=== PATIENT | female | born 1945 | race Caucasian/White ===

== ENCOUNTER 2017-11-05 15:17 | Inpatient (IN) | payer OTHER ==
[2017-11-05] MEDS ORDERED: oxyCODONE IR 5 MG TAB PO PRN (15:56)
[2017-11-05] MEDS ORDERED: SENNOSIDES 1 TAB PO PRN (16:01)
[2017-11-05] MEDS ORDERED: POLYETHYLENE GLYCOL 3350 17 GM PKT PO PRN (16:03)
[2017-11-05] MEDS ORDERED: BISACODYL 10 MG SUPP PR PRN (16:04)
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
[2017-11-05] MEDS ORDERED: METHOCARBAMOL 500 MG TAB PO SCH (18:00)
[2017-11-05] MEDS: oxyCODONE IR 5 MG TAB PO PRN (20:47)
[2017-11-05] MEDS: GABAPENTIN 300 MG CAP PO SCH (20:48)
[2017-11-05] MEDS: ACETAMINOPHEN 500 MG TAB PO SCH (20:48)
[2017-11-06] MEDS: oxyCODONE IR 5 MG TAB PO PRN ×4 (03:18→20:22)
[2017-11-06] MEDS: LEVOTHYROXINE 137 MCG TAB PO SCH (06:16)
[2017-11-06] MEDS: ACETAMINOPHEN 500 MG TAB PO SCH ×3 (06:16→21:02)
[2017-11-06 07:57] LABS: PLATELET COUNT 518 10^3/uL (150-400)
[2017-11-06] MEDS ORDERED: EPA PO SCH (09:00)
[2017-11-06] MEDS ORDERED: FISH OIL PO SCH (09:00)
[2017-11-06] MEDS ORDERED: DHA PO SCH (09:00)
[2017-11-06] MEDS ORDERED: NON-FORMULARY NEW DRUG (Escitalopram Oxalate [Lexapro] 5 MG) PO SCH (09:00)
[2017-11-06] MEDS ORDERED: OMEGA PO SCH (09:00)
[2017-11-06] MEDS: ESCITALOPRAM OXALATE 10 MG TAB PO SCH (09:06)
[2017-11-06] MEDS: OMEGA-3 FATTY ACIDS 1,000 MG CAP PO SCH (09:12)
[2017-11-06] MEDS: MULTIVITAMINS 1 EACH TAB PO SCH (09:12)
[2017-11-06] MEDS: ASPIRIN EC 81 MG TAB PO SCH (09:18)
[2017-11-06] MEDS: ENOXAPARIN 40 MG/0.4 ML SYR SC SCH (11:29)
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
--- NOTE | 2017-11-06 16:28 | PDOREHIP ---
Admission [facility] - Admission - 3 Day Assessment Period Admission Date/Day 1: 11/05/17 Day 2: 11/06/17 Day 3: 11/07/17 - Active Diagnoses Comorbidities and Co-existing Conditions at Admission: 82173. None of the Above - Skin Conditions Unhealed Pressure Ulcer (1 or more/Stage 1 or >)-Admission: 0. No
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
[2017-11-06] MEDS: GABAPENTIN 300 MG CAP PO SCH (21:01)
[2017-11-07] MEDS: ACETAMINOPHEN 500 MG TAB PO SCH ×3 (06:11→20:59)
[2017-11-07] MEDS: LEVOTHYROXINE 137 MCG TAB PO SCH (06:12)
[2017-11-07] MEDS: MULTIVITAMINS 1 EACH TAB PO SCH (08:41)
[2017-11-07] MEDS: OMEGA-3 FATTY ACIDS 1,000 MG CAP PO SCH (08:41)
[2017-11-07] MEDS: ASPIRIN EC 81 MG TAB PO SCH (08:42)
[2017-11-07] MEDS: ESCITALOPRAM OXALATE 10 MG TAB PO SCH (08:43)
[2017-11-07] MEDS: ENOXAPARIN 40 MG/0.4 ML SYR SC SCH (08:44)
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
[2017-11-07] MEDS ORDERED: GABAPENTIN 300 MG CAP PO SCH (12:41)
[2017-11-07] MEDS: METHOCARBAMOL 500 MG TAB PO PRN (20:59)
[2017-11-07] MEDS: oxyCODONE IR 5 MG TAB PO PRN (22:18)
[2017-11-08] MEDS: LEVOTHYROXINE 137 MCG TAB PO SCH (06:12)
[2017-11-08] MEDS: ACETAMINOPHEN 500 MG TAB PO SCH ×3 (06:12→21:56)
[2017-11-08] MEDS: ESCITALOPRAM OXALATE 10 MG TAB PO SCH (08:21)
[2017-11-08] MEDS: MULTIVITAMINS 1 EACH TAB PO SCH (08:22)
[2017-11-08] MEDS: OMEGA-3 FATTY ACIDS 1,000 MG CAP PO SCH (08:22)
[2017-11-08] MEDS: APIXABAN 2.5 MG TAB PO SCH ×2 (08:22→20:29)
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
[2017-11-08] MEDS: METHOCARBAMOL 500 MG TAB PO PRN (15:28)
[2017-11-08] MEDS: oxyCODONE IR 5 MG TAB PO PRN ×2 (16:22→20:29)
[2017-11-09] MEDS: ACETAMINOPHEN 500 MG TAB PO SCH ×3 (06:26→20:37)
[2017-11-09] MEDS: LEVOTHYROXINE 137 MCG TAB PO SCH (06:27)
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
[2017-11-09] MEDS: OMEGA-3 FATTY ACIDS 1,000 MG CAP PO SCH (09:29)
[2017-11-09] MEDS: APIXABAN 2.5 MG TAB PO SCH ×2 (09:29→20:38)
[2017-11-09] MEDS: MULTIVITAMINS 1 EACH TAB PO SCH (09:29)
[2017-11-09] MEDS: ESCITALOPRAM OXALATE 10 MG TAB PO SCH (09:30)
[2017-11-09] MEDS: GABAPENTIN 300 MG CAP PO PRN (20:38)
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
[2017-11-10] MEDS: LEVOTHYROXINE 137 MCG TAB PO SCH (05:53)
[2017-11-10] MEDS: ACETAMINOPHEN 500 MG TAB PO SCH ×3 (05:53→20:44)
[2017-11-10] MEDS: APIXABAN 2.5 MG TAB PO SCH ×2 (09:02→20:44)
[2017-11-10] MEDS: ESCITALOPRAM OXALATE 10 MG TAB PO SCH (09:02)
[2017-11-10] MEDS: OMEGA-3 FATTY ACIDS 1,000 MG CAP PO SCH (09:03)
[2017-11-10] MEDS: MULTIVITAMINS 1 EACH TAB PO SCH (09:03)
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
[2017-11-10] MEDS: oxyCODONE IR 5 MG TAB PO PRN (20:43)
[2017-11-10] MEDS: METHOCARBAMOL 500 MG TAB PO PRN (20:44)
[2017-11-10] MEDS: GABAPENTIN 300 MG CAP PO PRN (20:44)
[2017-11-11] MEDS: ACETAMINOPHEN 500 MG TAB PO SCH ×3 (05:20→21:04)
[2017-11-11] MEDS: LEVOTHYROXINE 137 MCG TAB PO SCH (05:21)
[2017-11-11] MEDS: oxyCODONE IR 5 MG TAB PO PRN ×2 (07:44→21:05)
[2017-11-11] MEDS: ESCITALOPRAM OXALATE 10 MG TAB PO SCH (08:32)
[2017-11-11] MEDS: MULTIVITAMINS 1 EACH TAB PO SCH (08:34)
[2017-11-11] MEDS: OMEGA-3 FATTY ACIDS 1,000 MG CAP PO SCH (08:34)
[2017-11-11] MEDS: APIXABAN 2.5 MG TAB PO SCH ×2 (08:34→21:04)
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
[2017-11-11] MEDS: METHOCARBAMOL 500 MG TAB PO PRN (21:04)
[2017-11-11] MEDS: GABAPENTIN 300 MG CAP PO PRN (21:05)
[2017-11-12] MEDS: ACETAMINOPHEN 500 MG TAB PO SCH ×3 (06:21→21:07)
[2017-11-12] MEDS: LEVOTHYROXINE 137 MCG TAB PO SCH ×2 (06:21→06:22)
[2017-11-12] MEDS: ESCITALOPRAM OXALATE 10 MG TAB PO SCH (08:15)
[2017-11-12] MEDS: APIXABAN 2.5 MG TAB PO SCH ×2 (08:15→21:07)
[2017-11-12] MEDS: OMEGA-3 FATTY ACIDS 1,000 MG CAP PO SCH (08:16)
[2017-11-12] MEDS: MULTIVITAMINS 1 EACH TAB PO SCH (08:16)
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
[2017-11-12] MEDS: METHOCARBAMOL 500 MG TAB PO PRN (21:07)
[2017-11-13] MEDS: ACETAMINOPHEN 500 MG TAB PO SCH ×3 (05:38→21:11)
[2017-11-13] MEDS: LEVOTHYROXINE 137 MCG TAB PO SCH (05:39)
[2017-11-13] MEDS: APIXABAN 2.5 MG TAB PO SCH ×2 (08:21→21:10)
[2017-11-13] MEDS: ESCITALOPRAM OXALATE 10 MG TAB PO SCH (08:21)
[2017-11-13] MEDS: OMEGA-3 FATTY ACIDS 1,000 MG CAP PO SCH (08:22)
[2017-11-13] MEDS: MULTIVITAMINS 1 EACH TAB PO SCH (08:23)
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
[2017-11-13] MEDS: METHOCARBAMOL 500 MG TAB PO PRN (21:10)
[2017-11-14] MEDS: ACETAMINOPHEN 500 MG TAB PO SCH (06:04)
[2017-11-14] MEDS: LEVOTHYROXINE 137 MCG TAB PO SCH (06:05)
[2017-11-14] MEDS: ESCITALOPRAM OXALATE 10 MG TAB PO SCH (08:13)
[2017-11-14] MEDS: OMEGA-3 FATTY ACIDS 1,000 MG CAP PO SCH (08:14)
[2017-11-14] MEDS: APIXABAN 2.5 MG TAB PO SCH ×2 (08:14→20:25)
[2017-11-14] MEDS: MULTIVITAMINS 1 EACH TAB PO SCH (08:14)
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
[2017-11-14] MEDS: ACETAMINOPHEN 500 MG TAB PO PRN (20:27)
[2017-11-14] MEDS: METHOCARBAMOL 500 MG TAB PO PRN (20:30)
[2017-11-15] MEDS: LEVOTHYROXINE 137 MCG TAB PO SCH (06:12)
[2017-11-15] MEDS: OMEGA-3 FATTY ACIDS 1,000 MG CAP PO SCH (09:03)
[2017-11-15] MEDS: MULTIVITAMINS 1 EACH TAB PO SCH (09:03)
[2017-11-15] MEDS: ESCITALOPRAM OXALATE 10 MG TAB PO SCH (09:03)
[2017-11-15] MEDS: APIXABAN 2.5 MG TAB PO SCH ×2 (09:03→20:27)
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
[2017-11-15] MEDS: METHOCARBAMOL 500 MG TAB PO PRN (20:27)
[2017-11-15] MEDS: ACETAMINOPHEN 500 MG TAB PO PRN (20:27)
[2017-11-16] MEDS: LEVOTHYROXINE 137 MCG TAB PO SCH (05:29)
[2017-11-16] MEDS: APIXABAN 2.5 MG TAB PO SCH ×2 (07:45→20:51)
[2017-11-16] MEDS: ESCITALOPRAM OXALATE 10 MG TAB PO SCH (07:45)
[2017-11-16] MEDS: MULTIVITAMINS 1 EACH TAB PO SCH (07:46)
[2017-11-16] MEDS: OMEGA-3 FATTY ACIDS 1,000 MG CAP PO SCH (07:46)
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
--- NOTE | 2017-11-16 17:58 | WOCRNPDOC ---
WOCRN Advanced Assessment Note - Skin Integrity Problem, Advanced Assess Right Arm Dressing Type: LeukoMed with Pads Dressing Description: Clean/Dry, Intact Closure Description: Marielle, Approximated Exudate Amount: None Skin Integrity Problem Comment: No concerns. No drainage. Wound healing well. Right Leg Dressing Type: Rafita Bandage, Adaptic Touch, Kerlix, Mepilex Transfer Dressing Description: Intact, Shadowed Closure Description: Sutures, Approximated Exudate Amount: Scant Exudate Characteristic(s): Serosanguinous Integumentary Issue Intervention: Dressing Changed Saniya Wound Tissue: Erythema Saniya Wound Swelling: Moderate Wound Bed Constitution: Granulation Tissue, Red/[place] - Non Granular Tissue, Stable Eschar Wound Edges: Epithelizing, Attached Site Measurement - Head-to-Toe Length X Width X Depth (cm): Lateral incision: 19.8x3x 0, Medial 14x2x0, open wound on anterior lower le.3x9.2x0.1 Skin Integrity Problem Comment: Removed brace and previous dressing. Patient is numb over entire wound bed. Cleaned wound bed on anterior proximal lower leg with saline. Wound bed was covered with a mixture of thin loose slough and skin. The layer of loose slough and skin was mechanically debrided off wound bed with gauze and forceps. This area is in between the incision/suture lines and no debridement was done near the suture lines themselves. The wound was again cleaned with ns and then silvasorb was applied to the pink wound bed and mepilex non border foam placed on top. The incision lines bordering the wound are necrosed and have areas of eschar, the lateral section more so than the medial. The remainder of the incisions are approximated and are not necrosed. The incisions were covered with one layer of xeroform. Kerlix was applied over the entire area and then wrapped with Rafita and the brace reapplied.
[2017-11-16] MEDS: METHOCARBAMOL 500 MG TAB PO PRN (20:51)
[2017-11-16] MEDS: ACETAMINOPHEN 500 MG TAB PO PRN (20:51)
[2017-11-17] MEDS: LEVOTHYROXINE 137 MCG TAB PO SCH (05:42)
[2017-11-17] MEDS: ESCITALOPRAM OXALATE 10 MG TAB PO SCH (09:08)
[2017-11-17] MEDS: APIXABAN 2.5 MG TAB PO SCH ×2 (09:08→20:46)
[2017-11-17] MEDS: MULTIVITAMINS 1 EACH TAB PO SCH (09:09)
[2017-11-17] MEDS: OMEGA-3 FATTY ACIDS 1,000 MG CAP PO SCH (09:09)
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
[2017-11-17] MEDS: ACETAMINOPHEN 500 MG TAB PO PRN (20:44)
[2017-11-18] MEDS: LEVOTHYROXINE 137 MCG TAB PO SCH (05:09)
[2017-11-18] MEDS: OMEGA-3 FATTY ACIDS 1,000 MG CAP PO SCH (08:56)
[2017-11-18] MEDS: APIXABAN 2.5 MG TAB PO SCH ×2 (08:56→20:27)
[2017-11-18] MEDS: ESCITALOPRAM OXALATE 10 MG TAB PO SCH (08:56)
[2017-11-18] MEDS: MULTIVITAMINS 1 EACH TAB PO SCH (08:56)
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
[2017-11-18] MEDS: ACETAMINOPHEN 500 MG TAB PO PRN (20:27)
[2017-11-19] MEDS: LEVOTHYROXINE 137 MCG TAB PO SCH (05:36)
[2017-11-19] MEDS: ESCITALOPRAM OXALATE 10 MG TAB PO SCH (09:05)
[2017-11-19] MEDS: APIXABAN 2.5 MG TAB PO SCH ×2 (09:06→20:31)
[2017-11-19] MEDS: MULTIVITAMINS 1 EACH TAB PO SCH (09:06)
[2017-11-19] MEDS: OMEGA-3 FATTY ACIDS 1,000 MG CAP PO SCH (09:06)
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
[2017-11-19] MEDS: ACETAMINOPHEN 500 MG TAB PO PRN (20:31)
[2017-11-20] MEDS: LEVOTHYROXINE 137 MCG TAB PO SCH (05:42)
[2017-11-20 05:43] VITALS: BP 106/59
[2017-11-20] MEDS: ESCITALOPRAM OXALATE 10 MG TAB PO SCH (08:21)
[2017-11-20] MEDS: APIXABAN 2.5 MG TAB PO SCH (08:21)
[2017-11-20] MEDS: OMEGA-3 FATTY ACIDS 1,000 MG CAP PO SCH (08:21)
[2017-11-20] MEDS: MULTIVITAMINS 1 EACH TAB PO SCH (08:21)
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
--- NOTE | 2017-11-20 11:31 | PDOREHIP ---
Admission [facility] - Admission - 3 Day Assessment Period Admission Date/Day 1: 11/05/17 Day 2: 11/06/17 Day 3: 11/07/17 Discharge [facility] - Discharge - 3 Day Assessment Period 2 Days Prior to Anticipated Discharge Date: 11/18/17 1 Day Prior to Anticipated Discharge Date: 11/19/17 Anticipated Discharge Date: 11/20/17 - Discharge Skin Conditions Unhealed Pressure Ulcer (1 or more/Stage 1 or >)-Discharge: 0. No
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
== END 2017-11-20 16:26 | disposition home or self-care (01) | DRG 946 ==
LOC: BREH 15:17
PROVIDERS: ADMIT Internal Medicine; ATTEND Physical Medicine & Rehabilitation
DX: S06.9X1D Unspecified intracranial injury with loss of consciousness of 30 minutes or less, subsequent encounter (principal); S22.41XD Multiple fractures of ribs, right side, subsequent encounter for fracture with routine healing; S42.351D Displaced comminuted fracture of shaft of humerus, right arm, subsequent encounter for fracture with routine healing; S82.141D Displaced bicondylar fracture of right tibia, subsequent encounter for closed fracture with routine healing; S82.401D Unspecified fracture of shaft of right fibula, subsequent encounter for closed fracture with routine healing; S27.321D Contusion of lung, unilateral, subsequent encounter; S27.0XXD Traumatic pneumothorax, subsequent encounter; V13.4XXD Pedal cycle driver injured in collision with car, pick-up truck or van in traffic accident, subsequent encounter; Y93.55 Activity, bike riding; E03.9 Hypothyroidism, unspecified; F41.8 Other specified anxiety disorders; D64.9 Anemia, unspecified
CPT/HCPCS: 92507-GN; 92523-GN; 97110-GO; 97110-GP; 97112-GP; 97140-GP; 97161-GP; 97166-GO; 97530-GO; 97530-GP; 97535-GO; 97537-GO; 97542-GP; J1650

== ENCOUNTER 2018-01-16 10:27 | Inpatient (IN) | payer OTHER ==
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
--- NOTE | 2018-01-16 10:45 | CPEKG ---
Heart Rate: 70 RR Interval: 857 P-R Interval: 176 QRSD Interval: 92 QT Interval: 404 QTC Interval: 436 P [place]: 65 QRS [place]: 2 T Wave [place]: 33 EKG Severity - ABNORMAL ECG - EKG Impression: SINUS RHYTHM EKG Impression: LEFT ATRIAL ABNORMALITY Electronically Signed By: Donta Reyes 16-Jan-2018 11:48:08
[2018-01-16 11:05] LABS: PLATELET COUNT 384 10^3/uL (150-400)
[2018-01-16 11:13] LABS: INR 0.95 (0.83-1.16); PROTIME(PATIENT) 12.9 SEC (12.0-15.0)
[2018-01-16] MEDS ORDERED: IOPAMIDOL (ISOVUE 370) 100 ML BTL IV ONE (11:38)
[2018-01-16] MEDS ORDERED: ceFAZolin 2 GM/DEXTROSE 100 ML IV ONE (13:13)
[2018-01-16] MEDS ORDERED: NS 1,000 ML IV SCH (13:15)
--- NOTE | 2018-01-16 14:38 | NEUSURGPN ---
Assessment/Plan: Please see full dictated H/P when available for details Assessment: 72 yr old F with chronic left SDH Plan: -Admit ICU -To OR today at 1700 for left craniotomy for sdh with Dr Benites. Patient signed consents and are on the chart -Transfuse one pk platelets now, keep one pack on hold for OR -Q1hr neuro checks -NPO Call Neurosurgery with any questions/concerns Subjective: Word finding difficulties Objective: AxO x3 Expressive aphagia PERRLA EOMI CN 2-12 grossly intact ISBELL x4 limited exam on RUE and RLE due to ortho injuries Neuro Check Frequency: per routine Urinary Catheter in Place: No - Physician Discussed Patient with : Delmis Neurosurgery Physical Exam - Vitals, I&O, Labs I and O 01/15/18 01/16/18 01/17/18 05:59 05:59 05:59 Weight 57.606 kg Vital Signs Temp Pulse Resp BP Pulse Ox 36.7 C 69 14 130/79 H 96 01/16/18 13:53 01/16/18 13:53 01/16/18 13:53 01/16/18 13:53 01/16/18 13:53 ICD10 Worksheet Patient Problems: Problems Problem Status Onset Chronic subdural hematoma Acute Multiple trauma Acute TBI (traumatic brain injury) Acute
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
[2018-01-16] MEDS ORDERED: BUPIVACAINE 0.25% 30 ML SDV ONE (15:22)
[2018-01-16] MEDS ORDERED: BACITRACIN ZINC 14.2 GM OINTTUBE TP ONE (15:22)
[2018-01-16] MEDS ORDERED: AVITENE POWDER 1 GM JAR TP ONE (15:23)
[2018-01-16] MEDS ORDERED: HYDROGEN PEROXIDE 236 ML BOTTLE TP ONE (15:23)
[2018-01-16] MEDS ORDERED: THROMBIN (BOVINE) 5,000 UNIT VIAL TP ONE (15:23)
[2018-01-16] MEDS ORDERED: MANNITOL 20% 100 GM/500 ML BAG IV ONE (15:23)
[2018-01-16] MEDS ORDERED: GENTAMICIN SULFATE 80 MG/2 ML VIAL ONE (15:24)
[2018-01-16] MEDS ORDERED: POVIDONE-IODINE 30 GM OINTTUBE TP ONE (15:24)
[2018-01-16] MEDS ORDERED: EPINEPHrine 1 MG/ML INJ ONE (15:24)
[2018-01-16] MEDS ORDERED: LR 1,000 ML IV ONE (16:07)
--- NOTE | 2018-01-16 16:25 | PDANEPAE ---
ANE History of Present Illness Left craniotomy for subdural ANE Past Medical History - Cardiovascular History Hx Hypertension: No Hx Arrhythmias: No Hx Chest Pain: No Hx Coronary Artery / Peripheral Vascular Disease: No Hx CHF / Valvular Disease: No Hx Palpitations: No - Pulmonary History Hx COPD: No Hx Asthma/Reactive Airway Disease: No Hx Recent Upper Respiratory Infection: No Hx Oxygen in Use at Home: No Hx Sleep Apnea: No Sleep Apnea Screening Result - Last Documented: Negative - Endocrine History Hx Diabetes: No Hypothyroid: Yes Hyperthyroid: No Obesity: no - Chronic Pain History Chronic Pain: No ANE Review of Systems Review of Systems: - Exercise capacity METS (RN): 6 METS ANE Patient History - Allergies Allergies/Adverse Reactions: No Known Allergies Allergy (Verified 01/16/18 13:28) - Home Medications Home Medications: Multivitamins [Multivitamin (*)] 1 each PO DAILY 11/05/17 [Last Taken Unknown] Aspirin [Aspirin 325 mg (*)] 325 mg PO HS 01/16/18 [Last Taken 01/15/18] Herbals/Supplements -Info Only 1 ea PO DAILY 01/16/18 [Last Taken Unknown] Austin-3 Fatty Acids [Fish Oil 1000 mg (*)] 1,000 mg PO DAILY 01/16/18 [Last Taken Unknown] - NPO status NPO Status: no food or drink >8 hours NPO Since - Liquids (Date): 01/16/18 NPO Since - Liquids (Time): 09:00 NPO Since - Solids (Date): 01/15/18 NPO Since - Solids (Time): 19:00 - Anes Hx Anes Hx: no prior problems - Smoking Hx Smoking Status: Never smoked Marijuana use: No - Family Anes Hx Family Anes Hx: none ANE Labs/Vital Signs - Labs Result Diagrams: 01/16/18 10:25 01/16/18 10:25 - Vital Signs Blood Pressure: 130/79 Heart Rate: 70 Respiratory Rate: 14 O2 Sat (%): 97 Height: 167.64 cm Weight: 57.606 kg ANE Physical Exam - Airway Neck exam: FROM Mallampati Score: Class 1 Mouth exam: normal dental/mouth exam, poor dentition - Cardiovascular Cardiovascular: regular rate and rhythym, systolic murmur ANE Anesthesia Plan Anesthesia Plan: general endotracheal anesthesia
[2018-01-16] MEDS ORDERED: CEFAZOLIN 2 GM/DEXTROSE/100 ML BAG IV ONE (16:33)
[2018-01-16] MEDS ORDERED: fentaNYL 250 MCG/5 ML INJ ONE (16:43)
[2018-01-16] MEDS ORDERED: PROPOFOL/EMULSION 500 MG/50 ML BOTTLE IV ONE (16:44)
[2018-01-16] MEDS ORDERED: PROPOFOL 200 MG/20 ML VIAL ONE ×2 (16:44→18:24)
[2018-01-16] MEDS ORDERED: DEXAMETHASONE 4 MG/ML VIAL ONE (16:48)
[2018-01-16] MEDS ORDERED: LIDOCAINE 2% 5 ML SDV ONE (16:48)
[2018-01-16] MEDS ORDERED: ROCURONIUM 50 MG/5 ML VIAL ONE (16:48)
[2018-01-16] MEDS ORDERED: PETROLAT,WHT/MIN OIL/SOD CHL 3.5 GM OPHT.OINT ONE (16:50)
[2018-01-16] MEDS ORDERED: BISACODYL 10 MG SUPP PR PRN (16:57)
[2018-01-16] MEDS ORDERED: ONDANSETRON 4 MG/2 ML VIAL IVP PRN ×2 (16:57→19:13)
[2018-01-16] MEDS ORDERED: POLYETHYLENE GLYCOL 3350 17 GM PKT PO PRN (16:57)
[2018-01-16] MEDS ORDERED: MAGNESIUM HYDROXIDE 30 ML UDCUP PO PRN (16:57)
[2018-01-16] MEDS ORDERED: HYDROCODONE/APAP 10/325 TAB PO PRN (16:57)
[2018-01-16] MEDS ORDERED: METHOCARBAMOL 750 MG TAB PO PRN (16:57)
[2018-01-16] MEDS ORDERED: ONDANSETRON DISINTEGRATING 4 MG TAB PO PRN (16:57)
[2018-01-16] MEDS ORDERED: niCARdipine/NACL 200 ML IV PRN (16:57)
[2018-01-16] MEDS ORDERED: LACTULOSE 20 GM/30 ML UDCUP PO PRN (16:57)
--- NOTE | 2018-01-16 16:57 | PDHPUP ---
History & Physical Update H&P update statement: This history and physical update is based on an assessment of the patient which was completed after admission or registration (within 24 hours), but prior to the surgery/procedure. H&P update: H&P reviewed & patient examined, no change in patient's condition since H&P completed
--- NOTE | 2018-01-16 17:27 | PDMN ---
Medical Necessity Medical necessity: Pt meets INPT criteria per MD/PA and [facility] S-414 Craniotomy for TBI or Intracerebral Hemorrhage (craniotomy for L SDH).
[2018-01-16] MEDS ORDERED: CHLORHEXIDINE GLUC HIBICLENS 118 ML BTL TP ONE (17:43)
[2018-01-16] MEDS ORDERED: NEOSTIGMINE METHYLSULFATE 5 MG/5 ML SYR ONE (18:40)
[2018-01-16] MEDS ORDERED: GLYCOPYRROLATE 0.2 MG/1 ML VIAL ONE ×2 (18:41)
--- NOTE | 2018-01-16 19:04 | POSTOPPROG ---
Post Op Note Date of Operation: 01/16/18 Surgeon: Maryuri Benites Stopper Maker: PURA Haley Anesthesiologist: Chalino Almonte Anesthesia: GET(General Endotracheal), Local (Specify) Pre-op Diagnosis: SDH Post-op Diagnosis: s/p craniotomy for evacuation of SDH Indication: SDH Procedure: left sided craniotomy Findings: subdural drainage Inf/Abcess present in the surg proc area at time of surgery?: No Depth: Deep Incisional (Fascial) EBL: 50-100 Drains: Pancho Younger, Other
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
[2018-01-16] MEDS ORDERED: HYDROmorphONE/DILAUDID 1 MG/ML INJ IVP PRN (19:13)
[2018-01-16] MEDS ORDERED: NALOXONE HCL 0.4 MG/ML INJ IVP PRN (19:13)
[2018-01-16] MEDS ORDERED: fentaNYL 100 MCG/2 ML INJ IVP PRN (19:13)
[2018-01-16] MEDS ORDERED: hydrALAZINE 20 MG/ML VIAL IVP ONE (19:23)
[2018-01-16] MEDS ORDERED: hydrALAZINE 20 MG/ML VIAL ONE (19:24)
[2018-01-16] MEDS: NS W/ 20 KCl/L 1,000 ML IV SCH (20:16)
[2018-01-16] MEDS: ACETAMINOPHEN 325 MG TAB PO PRN (20:17)
[2018-01-16] MEDS: levETIRAcetam 250 MG TAB PO SCH (21:05)
[2018-01-16] MEDS: SENNOSIDES/DOCUSATE SODIUM TAB PO SCH (21:06)
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
[2018-01-17] MEDS: ACETAMINOPHEN 325 MG TAB PO PRN ×4 (00:07→21:12)
[2018-01-17] MEDS: NS W/ 20 KCl/L 1,000 ML IV SCH ×2 (05:18→07:52)
[2018-01-17 05:32] LABS: PLATELET COUNT 367 10^3/uL (150-400)
[2018-01-17] MEDS: LEVOTHYROXINE 137 MCG TAB PO SCH (05:48)
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
[2018-01-17] MEDS: levETIRAcetam 250 MG TAB PO SCH ×2 (08:32→20:49)
[2018-01-17] MEDS: SENNOSIDES/DOCUSATE SODIUM TAB PO SCH ×2 (08:32→20:49)
[2018-01-17] MEDS: TRANEXAMIC ACID 650 MG TAB PO SCH ×2 (08:33→20:49)
[2018-01-17] MEDS: ESCITALOPRAM OXALATE 10 MG TAB PO SCH (08:33)
--- NOTE | 2018-01-17 10:17 | POSTANESTH ---
Post Anesthetic Evaluation Cardiovascular Status: Normal, Stable Respiratory Status: Normal, Stable Level of Consciousness/Mental Status: Can Participate in Eval Pain Control: Adequate, Prn Tx Ordered Nausea/Vomiting Control: Adequate, Prn Tx Ordered Complications Possibly Related to Anesthesia: None Noted (Speech improved. Pt. states thinking improved)
--- NOTE | 2018-01-17 14:13 | WOCRNPDOC ---
WOCRN Advanced Assessment Note - Skin Integrity Problem, Advanced Assess Left Head Surgical Wound/Incision Dressing Type: Wound Vac Dressing Description: Clean/Dry, Intact Integumentary Issue Intervention: Dressing Reinforced Skin Integrity Problem Comment: Patient was admitted with home [employer] vac, with tubing not compatible with hospital [employer] vac. [employer] vac tubing clamped, then disconnected. Track pad from [employer] vac removed. Drape placed over opening from [employer] track pad, and new hole cut for [employer] track pad. Track pad placed, and connected to vac tubing. Hospital vac set to -125mmHg continuous suction with no leaks. Wound care will round again tomorrow for vac dressing change. KIRT Yin in room for care.
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
[2018-01-18] MEDS: LEVOTHYROXINE 137 MCG TAB PO SCH (05:16)
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
[2018-01-18] MEDS: SENNOSIDES/DOCUSATE SODIUM TAB PO SCH ×2 (08:43→20:43)
[2018-01-18] MEDS: ESCITALOPRAM OXALATE 10 MG TAB PO SCH (08:43)
[2018-01-18] MEDS: TRANEXAMIC ACID 650 MG TAB PO SCH ×2 (08:44→20:43)
[2018-01-18] MEDS: levETIRAcetam 250 MG TAB PO SCH (08:44)
[2018-01-18 11:18] LABS: INR 0.96 (0.83-1.16)
[2018-01-18] MEDS: ACETAMINOPHEN 325 MG TAB PO PRN ×2 (11:41→19:39)
--- NOTE | 2018-01-18 12:10 | ASMTCMCOM ---
CM Note CM Note Notes: Patient has had a deteriorization in word finding over night. Neuro has been notified. Patient's repeat HCT shows worsening of SDH.Patient's Keppra increased to 1000mg BID and the subdural drain has been pulled back to pull out more blood products. PT is recommending home care at this time. CM will follow. Date Signed: 01/18/2018 12:09 PM Electronically Signed By:Patricia Blanton LCSW
--- NOTE | 2018-01-18 13:54 | WOCRNPDOC ---
WOCRN Advanced Assessment Note - Skin Integrity Problem, Advanced Assess Left Head Surgical Wound/Incision Dressing Type: Wound Vac Dressing Description: Clean/Dry, Intact Exudate Amount: Scant Exudate Color: Brown Integumentary Issue Intervention: Dressing Changed Saniya Wound Tissue: Blanching Saniya Wound Swelling: None Wound Bed Color: Red, Yellow Wound Bed Constitution: Granulation Tissue (90%), Adhered Slough (10%) Wound Edges: Epithelizing Site Odor: None Site Measurement - Head-to-Toe Length X Width X Depth (cm): 3.8x3.5x0.4 Skin Integrity Problem Comment: Dressing removed with adhesive remover. Wound cleansed with NS. Periwound skin prepped with no sting skin prep and draped. One piece of small simplace black foam placed in wound bed with a larger piece of black foam placed on top for track pad placement. Covered with drape and track pad placed. NPWT achieved at -125mmHg continuous with no leaks. Education provided to patient and daughter about the difference between their home [employer] NPWT and the hospital [employer] V[facility]. All questions answered. Wound care will round [facility] for wound vac dressing change.
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
[2018-01-18] MEDS ORDERED: levETIRAcetam 250 MG TAB PO SCH (15:47)
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
[2018-01-18] MEDS: levETIRAcetam 500 MG TAB PO SCH (20:43)
[2018-01-19] MEDS: ACETAMINOPHEN 325 MG TAB PO PRN ×2 (05:19→10:48)
[2018-01-19] MEDS: LEVOTHYROXINE 137 MCG TAB PO SCH (05:20)
[2018-01-19] MEDS: levETIRAcetam 500 MG TAB PO SCH ×2 (08:09→21:09)
[2018-01-19] MEDS: ESCITALOPRAM OXALATE 10 MG TAB PO SCH (08:09)
[2018-01-19] MEDS: SENNOSIDES/DOCUSATE SODIUM TAB PO SCH ×2 (08:09→21:09)
[2018-01-19] MEDS: TRANEXAMIC ACID 650 MG TAB PO SCH ×2 (08:09→21:10)
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
[2018-01-20] MEDS: LEVOTHYROXINE 137 MCG TAB PO SCH (06:06)
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
[2018-01-20] MEDS: ESCITALOPRAM OXALATE 10 MG TAB PO SCH (08:19)
[2018-01-20] MEDS: TRANEXAMIC ACID 650 MG TAB PO SCH ×2 (08:19→20:42)
[2018-01-20] MEDS: SENNOSIDES/DOCUSATE SODIUM TAB PO SCH ×2 (08:20→20:42)
[2018-01-20] MEDS: levETIRAcetam 500 MG TAB PO SCH ×2 (08:21→20:42)
[2018-01-20] MEDS ORDERED: PROTOCOL CALCIUM 1 DOSE IV PRN (13:15)
[2018-01-20] MEDS ORDERED: PROTOCOL MAGNESIUM 1 DOSE IV PRN (13:15)
[2018-01-20] MEDS ORDERED: PROTOCOL POTASSIUM 1 DOSE MISC PRN (13:15)
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
[2018-01-20] MEDS ORDERED: POTASSIUM CL 10 MEQ TAB PO ONE (14:22)
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
[2018-01-21] MEDS: LEVOTHYROXINE 137 MCG TAB PO SCH (06:45)
[2018-01-21] MEDS ORDERED: MAGNESIUM SULF 1 GM/DEXTROSE 100 ML IV ONE (07:14)
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
[2018-01-21] MEDS ORDERED: LIDOCAINE 1% 5 ML SDV IF ONE (07:30)
[2018-01-21] MEDS: ESCITALOPRAM OXALATE 10 MG TAB PO SCH (08:32)
[2018-01-21] MEDS: SENNOSIDES/DOCUSATE SODIUM TAB PO SCH ×2 (08:32→20:29)
[2018-01-21] MEDS: levETIRAcetam 500 MG TAB PO SCH ×2 (08:33→20:29)
[2018-01-21] MEDS: TRANEXAMIC ACID 650 MG TAB PO SCH ×2 (08:34→20:29)
--- NOTE | 2018-01-21 09:41 | WOCRNPDOC ---
WOCRN Advanced Assessment Note - Skin Integrity Problem, Advanced Assess Right Anterior Lower Leg Dressing Type: Wound Vac Dressing Description: Clean/Dry, Intact Exudate Characteristic(s): None Integumentary Issue Intervention: Dressing Changed, Dressing Initialed & Dated, Hydrogel Applied Saniya Wound Tissue: Blanching Saniya Wound Swelling: None Wound Bed Color: Red Wound Bed Constitution: Granulation Tissue (100%) Wound Edges: Epithelizing Site Odor: None Site Measurement - Head-to-Toe Length X Width X Depth (cm): 3.4x3x0.2 Skin Integrity Problem Comment: Wound vac dressing removed and wound cleansed with NS. Wound bed has 100% granulation tissue with little depth. Wound vac no longer indicated. Wound gel applied and covered with a medium Allevyn dressing. Wound care will sign off on this wound. Please reconsult PRN.
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
--- NOTE | 2018-01-21 17:25 | ASMTCMCOM ---
CM Note CM Note Notes: PT/OT recommending HC for patient. She has [employer] Ins. Will check Tues as to which HC take her Ins. Date Signed: 01/21/2018 05:24 PM Electronically Signed By:Ciera Lynch LCSW
[2018-01-21] MEDS ORDERED: POTASSIUM CL 10 MEQ TAB PO ONE (20:16)
[2018-01-21 20:34] VITALS: BP 100/69
[2018-01-22] MEDS: LEVOTHYROXINE 137 MCG TAB PO SCH (05:14)
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
[2018-01-22] MEDS: ESCITALOPRAM OXALATE 10 MG TAB PO SCH (08:24)
[2018-01-22] MEDS: levETIRAcetam 500 MG TAB PO SCH (08:24)
[2018-01-22] MEDS: TRANEXAMIC ACID 650 MG TAB PO SCH (08:25)
--- NOTE | 2018-01-22 12:27 | PDIAF ---
- Diagnosis Diagnosis: s/p ICB/craniotomy Code Status: Full Code - Medication Management Discharge Medications: Medications to Continue on Transfer Multivitamins [Multivitamin (*)] 1 each PO DAILY 11/05/17 [Last Taken Unknown] Acetaminophen [Tylenol ES 500 mg (*)] 1,000 mg PO Q8 PRN tab 11/20/17 [Last Taken Unknown] Escitalopram Oxalate [Lexapro] 5 mg PO DAILY #30 tablet 11/20/17 [Last Taken ] Levothyroxine [Synthroid 137 mcg (*)] 137 mcg PO DAILY06 #30 tab 11/20/17 [Last Taken 01/16/18] Herbals/Supplements -Info Only 1 ea PO DAILY 01/16/18 [Last Taken Unknown] Tranexamic Acid 650 mg PO BID #60 tab 01/22/18 [Last Taken Unknown] levETIRAcetam [Keppra 500 mg (*)] 1,000 mg PO BID #60 tab 01/22/18 [Last Taken Unknown] Assisted Antibiotics: none Discharge Medications: Refer to the Discharge Home Medication list for PRN reason. PICC Care - Routine: N/A - Orders Services needed: Home Care, Registered Nurse, Physical Therapy, Occupational Therapy Home Care Face to Face: I certify that this patient was under my care and that I had the required [id number] encounter meeting the encounter requirements on the discharge day. My findings support the fact that the patient is homebound as defined in Home Care Face to Face Continued: CMS Chapter 7 Medicare Benefits Manual 30.1.1 , The condition of the patient is such that there exists a normal inability to leave home and consequently, leaving home would require a considerable and taxing effort. Isolation Type: None Diet Recommendation: no restrictions on diet Diet Texture: Regular Texture Diet, Thin Liquids Additional Instructions: Wound care orders Continue your follow ups at outpatient wound healing center. Change dressings to right lower leg every 3 days and prn. 1. Clean with normal saline and gauze or in shower/with soap and water. 2. Apply wound gel to wound bed 3. Cover with a medium Allevyn Life or other bordered foam dressing Yvonne Treviño RN Wound Care Team No blood thinners Continue with the Dominic Call with any questions or concerns Take medications as directed - Follow Up Care Current Providers and Referrals: CHAIM BULLOCK [Primary Care Provider] - As per Instructions Maryuri Benites DO [Doctor of Osteopathy] - (follow up in 2-3 weeks)
--- NOTE | 2018-01-22 16:13 | ASMTLACE ---
LACE Length of stay for Answers: 4-6 days current admission Acuity / Level of Answers: Yes Care: Did the patient have an inpatient admission? Comorbidities - select Answers: Other Notes: Hypothyroidism all that apply # of Emergency department Answers: 1-2 visits in the last 6 months Score: 9 Date Signed: 01/22/2018 04:13 PM Electronically Signed By:Ciera Lynch LCSW
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
--- NOTE | 2018-01-22 16:16 | ASMTDCNOTE ---
Case Management Discharge Discharge Order Complete? Answers: Yes Patient to Obtain Answers: via Family Medications Transportation Arranged Answers: Family/Friends Transport will Pick (Date 01/22/2018 08:30 AM & Time) Faxed Final Orders Answers: Yes Notes: [facility] Family Notified Answers: Yes Notes: Family to transport Discharge Comments Notes: Patient has been discharged home. [facility] to follow. Date Signed: 01/22/2018 04:15 PM Electronically Signed By:Ciera Lynch LCSW
--- NOTE | 2018-02-05 08:29 | GDS ---
[f rep st] DISCHARGE SUMMARY DISCHARGE ORDER: Patient's discharge effective 01/22/2018, at 0826 to home with home health service. /[id number]/MODL
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
== END 2018-01-22 08:26 | disposition home health service (06) | DRG 27 ==
LOC: SUPCPDRO 10:27 → F2N 13:48
PROVIDERS: ADMIT Neurological Surgery; ATTEND Neurological Surgery
DX: I62.03 Nontraumatic chronic subdural hemorrhage (principal); R47.02 Dysphasia; Z79.82 Long term (current) use of aspirin; E03.9 Hypothyroidism, unspecified
CPT/HCPCS: 92507-GN; 92523-GN; 97161-GP; 97166-GO; 97530-GP; C1713; C1729; G8978-GP-CJ; G8979-GP-CJ; G8987-GO-CJ; G8988-GO-CJ; G8989-GO-CJ; G9165-GN-CJ; G9166-GN-CI; J0171; J0360; J0690; J1100; J1580; J2405; J2704; J2710; J3010; J3475; P9035; Q9967

== ENCOUNTER → 2018-02-22 | Outpatient (CLI) | payer OTHER | LOC: CIMAGING 12:03 | PROVIDERS: ATTEND Neurological Surgery | DX: S06.5X0D Traumatic subdural hemorrhage without loss of consciousness, subsequent encounter (principal) | CPT/HCPCS: 70450-PO ==